=== PATIENT | female | born 1970 | race Caucasian/White ===

== ENCOUNTER → 2016-08-19 | Outpatient (CLI) | payer OTHER ==
[~2016-08-19] VITALS: Ht 167.6 cm; Wt 80.7 kg
[~2016-08-19] MED LIST: ADVIL200 M1 PO; CITRACAL + D E1 EACH PO; MULTIPLE VITAM1 EAC4 PO
== END | disposition home or self-care (01) ==
LOC: AMB 08:55
DX: D3A.8 Other benign neuroendocrine tumors (principal); R16.0 Hepatomegaly, not elsewhere classified; K25.9 Gastric ulcer, unspecified as acute or chronic, without hemorrhage or perforation; K29.90 Gastroduodenitis, unspecified, without bleeding; Z87.891 Personal history of nicotine dependence
CPT/HCPCS: 88173; 88305; 88307; 88341 TC; 88342 TC; J0330; J2250; J2405; J3010

== ENCOUNTER → 2016-09-14 | Outpatient (CLI) | payer OTHER ==
[~2016-09-14] MED LIST changes: +NEXIUM40 MG PO; +OCTREOTIDE100 MCG/2 IV; +TYLENOL REGULA325 MG PO
== END | disposition home or self-care (01) ==
LOC: NUC 07:01
DX: R16.0 Hepatomegaly, not elsewhere classified (principal)
CPT/HCPCS: 78804; 78999; A9572

== ENCOUNTER → 2016-09-16 | Outpatient (CLI) | payer OTHER | END | disposition home or self-care (01) | LOC: CDC 10:08 | DX: Z01.810 Encounter for preprocedural cardiovascular examination (principal); R16.0 Hepatomegaly, not elsewhere classified | CPT/HCPCS: 93000 ==

== ENCOUNTER → 2016-09-22 | Outpatient (CLI) | payer OTHER ==
[~2016-09-22] VITALS: Ht 167.6 cm; Wt 77.1 kg
== END | disposition home or self-care (01) ==
LOC: AMB 09:18
PROC: 0DBN8ZX Excision of Sigmoid Colon, Via Natural or Artificial Opening Endoscopic, Diagnostic (ICD-10-PCS; principal; 2016-09-22)
PROC: 0DBQ8ZX Excision of Anus, Via Natural or Artificial Opening Endoscopic, Diagnostic (ICD-10-PCS; principal; 2016-09-22)
PROC: 0DBL8ZX Excision of Transverse Colon, Via Natural or Artificial Opening Endoscopic, Diagnostic (ICD-10-PCS; principal; 2016-09-22)
DX: C7A.8 Other malignant neuroendocrine tumors (principal); D12.3 Benign neoplasm of transverse colon; K63.5 Polyp of colon; K62.0 Anal polyp; R16.0 Hepatomegaly, not elsewhere classified; K57.30 Diverticulosis of large intestine without perforation or abscess without bleeding
CPT/HCPCS: 88305

== ENCOUNTER 2018-01-23 06:34 | Day surgery (SDC) | payer OTHER ==
[~2018-01-23] VITALS: Ht 167.6 cm; Wt 67.1 kg
[~2018-01-23 06:34] MED LIST changes: +CAPECITABINE500 MG PO; +COLACE100 MG PO; +COMPAZINE10 MG PO; +FIBER GUMMIES1 EACH PO; +LASIX20 MG PO; +LORAZEPAM0.5 MG PO; +MORPHINE SULFAT15 M1 PO; +ONDANSETRON HCL4 MG PO; +TEMOZOLOMIDE180 MG PO; +ZOMETA 4 M4 MG/100 M IV
== END 2018-01-23 09:00 | disposition home or self-care (01) ==
LOC: CATH 06:34
DX: Z45.2 Encounter for adjustment and management of vascular access device (principal); C79.51 Secondary malignant neoplasm of bone
CPT/HCPCS: C1788; C1894; J0690; J1644; J2250; J3010; S0020